=== PATIENT | female | born 1990 | race Caucasian/White ===

== ENCOUNTER 2018-10-07 18:32 | Emergency (ER) | payer SELFPAY ==
[~2018-10-07] VITALS: Ht 160 cm; Wt 117.9 kg
--- NOTE | 2018-10-07 18:38 | NUR ---
Patient transferred to bed 5 via wheelchair by charge nurse. RN evaluating patient at bedside.
[2018-10-07 18:39] VITALS: BP 153/83
--- NOTE | 2018-10-07 18:42 | NUR ---
27/F BIB [facility]ILY C/O RIGHT ANKLE PAIN S/P mechanical fall from curbside sidewalk x 2 days .swelling discoloration unable to bear full weight. +2 pedal pulse <3 sec cap refill. PATIENT STATES PAIN OF 8/10 AT THIS TIME; PATIENT POSITIONED FOR COMFORT; HOB ELEVATED; BEDRAILS UP X1; BED DOWN. ER MD MADE AWARE OF PT STATUS.
--- NOTE | 2018-10-07 19:08 | NUR ---
Pt report given to МАРИНА PEPE. Transfer of care at this time.
--- NOTE | 2018-10-07 19:22 | NUR ---
Dr. Nolen examining patient.
--- NOTE | 2018-10-07 20:05 | NUR ---
EMT AT BEDSIDE APPLYING BUCK WRAP TO RIGHT ANKLE. EDUCATED PT ON HOW TO USE CRUTCHES.
[2018-10-07 20:09] VITALS: BP 153/83
--- NOTE | 2018-10-07 20:09 | NUR ---
Patient discharged with v/s stable. Written and verbal after care instructions given and explained. Patient alert, oriented and verbalized understanding of instructions. Ambulatory with crutches and steady gait. All questions addressed prior to discharge. ID band removed. Patient advised to follow up with PMD. Rx of Motrin was given. Patient educated on indication of medication including possible reaction and side effects. Opportunity to ask questions provided and answered.
== END 2018-10-07 20:09 | disposition home or self-care (01) ==
LOC: MED 18:32
DX: S93.401A Sprain of unspecified ligament of right ankle, initial encounter (principal); Z88.6 Allergy status to analgesic agent; E07.9 Disorder of thyroid, unspecified; W01.0XXA Fall on same level from slipping, tripping and stumbling without subsequent striking against object, initial encounter; Y93.89 Activity, other specified; Y92.89 Other specified places as the place of occurrence of the external cause; Y99.8 Other external cause status
CPT/HCPCS: 73610; 99283; Q0092